=== PATIENT | female | born 1955 | race Caucasian/White ===

== ENCOUNTER 2017-08-29 13:43 | Emergency (ER) | payer OTHER ==
[~2017-08-29] VITALS: Ht 170.2 cm; Wt 81.0 kg
[2017-08-29 16:29] VITALS: BP 119/72
== END 2017-08-29 16:30 | disposition home or self-care (01) ==
LOC: EDBD 13:44 → ER 13:44 → EDSEX 13:44 → ER 16:30
DX: S82.891A Other fracture of right lower leg, initial encounter for closed fracture (principal); X58.XXXA Exposure to other specified factors, initial encounter; Y93.89 Activity, other specified; Y92.89 Other specified places as the place of occurrence of the external cause; Y99.8 Other external cause status
CPT/HCPCS: 29515; 73610; 99284; A6449

== ENCOUNTER 2017-09-09 09:01 | Outpatient (CLI) | payer OTHER ==
[2017-09-09 09:02] VITALS: BP 115/74
== END 2017-09-09 09:55 | disposition home or self-care (01) ==
LOC: ORTHO 09:01
PROVIDERS: ATTEND Nurse Practitioner Family
DX: S82.891D Other fracture of right lower leg, subsequent encounter for closed fracture with routine healing (principal); X58.XXXA Exposure to other specified factors, initial encounter; Y93.89 Activity, other specified; Y92.89 Other specified places as the place of occurrence of the external cause; Y99.8 Other external cause status
CPT/HCPCS: 73610; 99213; L4360

== ENCOUNTER 2017-10-04 13:00 | Outpatient (CLI) | payer SELFPAY ==
[2017-10-04 13:07] VITALS: BP 106/61
== END 2017-10-04 13:40 | disposition home or self-care (01) ==
LOC: ORTHO 13:00
PROVIDERS: ATTEND Nurse Practitioner Family
DX: S99.911D Unspecified injury of right ankle, subsequent encounter (principal); M77.31 Calcaneal spur, right foot; M79.89 Other specified soft tissue disorders; X58.XXXD Exposure to other specified factors, subsequent encounter
CPT/HCPCS: 73610; 99213